=== PATIENT | male | born 1975 | race Two or more races ===

== ENCOUNTER → 2025-05-03 | Outpatient (CLI) | payer BC, SELFPAY ==
--- NOTE | 2025-05-03 13:14 | XR_ITS ---
Examination: Knee, left , 3 views Technique: Knee AP, lateral, oblique 3 views Date and time of exam: May 03, 2025, 1357 hours INDICATIONS: Sudden onset left knee pain beginning one month ago. FINDINGS: Severe narrowing [id number] lateral joint space left knee Moderate osteoarthritis patellofemoral joint No fracture Large knee effusion IMPRESSION: Severe narrowing [id number] lateral joint space left knee
== END | disposition home or self-care (01) ==
LOC: CDIM 13:07
PROVIDERS: PCP Family Medicine; Referring Provider Family Medicine; Visit Provider Family Medicine
DX: M25.862 Other specified joint disorders, left knee (principal)
CPT/HCPCS: 73562